=== PATIENT | male | born 1960 | race Caucasian/White ===

== ENCOUNTER 2024-12-08 08:33 | Inpatient (IN) ==
--- NOTE | 2024-12-08 09:10 | Emergency Department Note ---
ED Visit Note I was consulted by the Advanced Practice Provider, Darrell Felix PA-C. I personally made/approved the management plan and take responsibility for the patient management. I performed a substantive portion of the visit. This includes the aspects of: -History/Physical/Personally seeing the patient -MDM .
[2024-12-08 09:30] LABS: Hematocrit (blood only) 44.1 % (42.0-52.0); Hemoglobin 13.8 g/dl (14.0-18.0); Immature Granulocytes # (auto) 0.09 K/uL (0.01-0.20); Immature Granulocytes % (auto) 0.7 %; Mean Corpuscular Hemoglobin 27.8 pg (25.0-34.0); Mean Corpuscular Volume 88.9 fL (80.0-100.0); Platelet Count 273 K/uL (130-400); RDW Standard Deviation 44.1 fL (36.4-46.3); Red Blood Count 4.96 M/uL (4.70-6.10); White Blood Count 12.30 K/ul (4.8-10.8)
[2024-12-08] MEDS ORDERED: CLINDAMYCIN/D5W 900 MG/50 ML BAG IV ONE (09:34)
[2024-12-08] MEDS ORDERED: metroNIDAZOLE 500 MG/100 ML BAG IV STA (09:34)
--- NOTE | 2024-12-08 09:43 | XRay Report ---
XR chest 1V portable CLINICAL HISTORY: Sepsis. COMPARISON STUDY: No previous studies for comparison. FINDINGS: Lung volumes are normal. There is no pneumothorax or pleural effusion. There is no consolid ation or evidence for pulmonary edema. Cardiac size is at the upper limits of normal. There is an abn ormal right mediastinal contour with leftward displacement of the trachea. IMPRESSION: 1. No acute cardiopulmonary findings. 2. Abnormal right mediastinal contour with leftward displacement of the trachea. Although suboptimall y assessed by radiography, this favors a right-sided aortic arch. ACT 112: Negative or not required by law. Electronically signed by: Vito Martinez M.D. 12/08/2024 9:42 AM
[2024-12-08] MEDS: OPTIRAY 320 100ml IV ONE (09:44)
[2024-12-08 09:48] LABS: Alanine Aminotransferase 19.0 U/L (7-52); Alkaline Phosphatase 41.0 U/L (34-104); Anion Gap 10.0 (3-11); Bilirubin,Total 1.1 mg/dl (0.2-1.0); Blood Urea Nitrogen 28.0 mg/dl (6-23); Calcium 9.8 mg/dl (8.6-10.3); Carbon Dioxide 30.0 mmol/L (21-32); Chloride 101.0 mmol/L (98-107); Creatinine Clr Calc Pharmacy 82.2 ml/min; Glucose 135.0 mg/dl (70-99(Fasting)); Magnesium 1.9 mg/dl (1.7-2.4); Potassium 3.9 mmol/L (3.5-5.1); Sodium 141.0 mmol/L (136-145); Total Protein 8.0 gm/dl (6.0-8.3)
[2024-12-08 09:58] LABS: INR 1.0 (0.9-1.1); Partial Thromboplastin Time 29 Seconds (21-31); Prothrombin Time 10.6 Seconds (9.0-12.0)
[2024-12-08] MEDS: CLINDAMYCIN/D5W 600 MG/50 ML PREMIX BAG IV STA (10:09)
[2024-12-08 10:16] LABS: Base Excess VBG 5.0 mEq/L; HCO3 VBG 32 mmol/L; Oxygen Saturation VBG < 60.0 %; PCO2 VBG 55 mmHg (38-50); PO2 VBG < 20 mmHg; pH VBG 7.37 (7.36-7.41)
--- NOTE | 2024-12-08 10:28 | CT Scan Report ---
CT OF THE NECK WITH IV CONTRAST CLINICAL HISTORY: neyda's COMPARISON STUDY: No previous studies for comparison. TECHNIQUE: Following IV administration of 94 mL of Optiray, helical axial images of the neck were ob tained. Sagittal and coronal reconstructions were viewed. Automated exposure control was utilized f or the study. A dose lowering technique was utilized adhering to the principles of ALARA. CT DOSE: 558.34 mGy.cm FINDINGS: Asymmetric prominence of the extra-axial space overlying the right frontal and parietal lo bes is partially imaged on this exam. There is a focus of encephalomalacia within the left occipital lobe. The intracranial contents are otherwise unremarkable. The bilateral parotid glands are unremark able. Major vasculature of the neck is patent. There is no soft tissue gas within the neck. There is moderate inflammation centered on the floor of the mouth. This extends into the submandibular, sublin gual and submental spaces. There is associated skin thickening and moderate lower facial and upper ne ck inflammation. Inflammation adjacent to the bilateral submandibular glands is noted. The glands are enlarged. There is thickening of the epiglottis. This results in supraglottic airway narrowing which appears severe. There are 2 adjacent intramuscular fluid collections within the anterior floor the m outh which measure up to 1.5 cm. These demonstrate minimal peripheral enhancement and are suggestive of developing abscesses. There is a periapical lucency/abscess of the left mandibular second premolar (ADA #20). Multiple teeth are absent. There is no prevertebral edema. Right-sided aortic arch is par tially imaged. Lung apices are unremarkable within visualized portions. IMPRESSION: 1. Findings consistent with an extensive infectious process centered on the floor of the mouth with i nvolvement of the submandibular, sublingual and submental spaces. Two associated small intramuscular fluid collections within the anterior floor of the mouth suggest developing abscesses. The findings a re likely odontogenic in etiology and may be related to a periapical lucency/abscess of the left jl ibular second premolar. Associated thickened, edematous epiglottis which appears to result in severe supraglottic airway narrowing. Urgent ENT consultation is recommended for these findings. 2. Asymmetric prominence of the extra-axial space overlying the right frontal and parietal lobes, par tially imaged on this exam. This is likely chronic and may be related to atrophy or a chronic subdura l hematoma. Nonemergent head CT is recommended. ACT 112: Negative or not required by law. Electronically signed by: Vito Martinez M.D. 12/08/2024 10:26 AM
[2024-12-08 10:48] LABS: Appearance Urine Clear (Clear); Glucose Urine UA Trace (Negative)
--- NOTE | 2024-12-08 10:57 | Electrocardiogram Report ---
Test Reason : Blood Pressure : */* mmHG Vent. Rate : 88 BPM Atrial Rate : 88 BPM P-R Int : 156 ms QRS Dur : 104 ms QT Int : 370 ms P-R-T Axes : 53 -20 29 degrees QTcB Int : 447 ms Normal sinus rhythm Incomplete right bundle branch block Cannot rule out Anterior infarct , age undetermined Abnormal ECG No previous ECGs available Confirmed by Chase Kim ([id number]) on 12/08/2024 10:56:28 AM Referred By: REFERRED SELF Confirmed By: Chase Kim
--- NOTE | 2024-12-08 11:08 | CT Scan Report ---
CT SCAN OF THE BRAIN WITHOUT IV CONTRAST CLINICAL HISTORY: Abnormal finding on neck CT. COMPARISON STUDY: CT of the neck performed earlier today. TECHNIQUE: Unenhanced axial CT scan of the brain was performed from the vertex to the skull base. A dose lowering technique was utilized adhering to the principles of ALARA. CT DOSE: 781.9 mGy.cm FINDINGS: No acute intracranial hemorrhage is present. Ventricular system is unremarkable. Prominence of the extra-axial spaces overlying the cerebral hemispheres, right greater than left, is likely due to atrophy. There are no findings to suggest acute dural sinus thrombosis or acute territorial infar ct. Encephalomalacia within the left occipital lobe is chronic. IMPRESSION: 1. No acute intracranial findings. 2. Prominence of the extra-axial spaces overlying the cerebral hemispheres, right greater than left. This is chronic and likely due to atrophy. ACT 112: Negative or not required by law. Electronically signed by: Vito Martinez M.D. 12/08/2024 11:06 AM
--- NOTE | 2024-12-08 11:20 | Oral/Maxillofacial Consult ---
Date of Consultation December 08, 2024 Assessment & Plan (1) Neyda angina: (2) Submental abscess: (3) Cellulitis of floor of mouth: (4) Failing root canal: History of Present Illness History of Present Illness Oral Maxillofacial Surgery Exam There is NO airway emergency noted Suggest IV therapy with antibiotics Head of bed 30 degrees Heat to chin area Plan NPO for OR tomorrow Must shave his face and neck area Present Complaint: I have pain/swelling/drainage from my infected lower left tooth Symptoms have been ongoing for a while developed significant submental swelling (Neyda angina) No airway issues Oral Exam: Finding--Classic developing Neyda angina submandibular and submental, floor of the mouth Abscessed # 20 lower left premolar Imaging: CT OF THE NECK WITH IV CONTRAST CLINICAL HISTORY: neyda's FINDINGS: Asymmetric prominence of the extra-axial space overlying the right frontal and parietal lobes is partially imaged on this exam. There is a focus of encephalomalacia within the left occipital lobe. The intracranial contents are otherwise unremarkable. The bilateral parotid glands are unremarkable. Major vasculature of the neck is patent. There is no soft tissue gas within the neck. There is moderate inflammation centered on the floor of the mouth. This extends into the submandibular, sublingual and submental spaces. There is associated skin thickening and moderate lower facial and upper neck inflammation. Inflammation adjacent to the bilateral submandibular glands is noted. The glands are enlarged. There is thickening of the epiglottis. This results in supraglottic airway narrowing which appears severe. There are 2 adjacent intramuscular fluid collections within the anterior floor the mouth which measure up to 1.5 cm. These demonstrate minimal peripheral enhancement and are suggestive of developing abscesses. There is a periapical lucency/abscess of the left mandibular second premolar (ADA #20). Multiple teeth are absent. There is no prevertebral edema. Right-sided aortic arch is partially imaged. Lung apices are unremarkable within visualized portions. IMPRESSION: 1. Findings consistent with an extensive infectious process centered on the floor of the mouth with involvement of the submandibular, sublingual and submental spaces. Two associated small intramuscular fluid collections within th e anterior floor of the mouth suggest developing abscesses. The findings are likely odontogenic in etiology and may be related to a periapical lucency/abscess of the left mandibular second premolar. Associated thickened, edematous epiglottis which appears to result in severe supraglottic airway narrowing. Urgent ENT consultation is recommended for these findings. 2. Asymmetric prominence of the extra-axial space overlying the right frontal and parietal lobes, partially imaged on this exam. This is likely chronic and may be related to atrophy or a chronic subdural hematoma. Nonemergent head CT is recommended. Soft tissue: Floor of the mouth, tongue, hard/soft palate, posterior pharyngeal area all with in normal limits, no pathology or abnormal findings noted. No lesions noted that require follow up or Bx. Oral Care: Overall oral care is far Occlusion: Class I missing teeth Head/Neck exam: Neck is supple, FROM, Able to extend and flex neck w/o difficulty, Developing Neyda angina with no airway issues able to swallow but with pain Treatment Plan: Admission to medical, IV antibiotics, fluid management, heat to neck, NPO with possible I&D tomorrow afternoon Set up with general anesthesia in hospital due to complexity of the procedure I reviewed the treatment plan and consent with the patient and Understanding was expressed. Time was given for questions regarding the surgery, risks and post op care. Discussed alternative to treatment--procedure as planned, Do not do surgery Extraoral I&D with ext of # 20 Risks discussed: Bleeding,Pain,swelling,infection, dry socket, delayed healing, nerve injury to face,lips,tongue,chin area which could be permanent (rare). TMJ, jaw stiffness, change in bite (rare), ear pain (referred). Continued infection, scar from I&D sites Surgery to be set up hopefully tomorrow afternoon if organization of the infection process suggest fluctuation in the submandibular, submental and floor of the mouth Allergies Allergy/AdvReac Type Severity Reaction Status Date / Time Penicillins Allergy Unknown Unknown - Unverified 12/08/24 11:29 On file w/ [facility] Home Medications Medication Instructions Recorded Confirmed Type atorvastatin 40 mg tablet 40 mg PO DAILY 12/08/24 12/08/24 History chlorthalidone 25 mg tablet 25 mg PO DAILY 12/08/24 12/08/24 History fenofibrate micronized 200 mg 200 mg PO DAILY 12/08/24 12/08/24 History capsule gabapentin 300 mg capsule 300 mg PO TID 12/08/24 12/08/24 History lisinopril 40 mg tablet 40 mg PO DAILY 12/08/24 12/08/24 History metformin 500 mg tablet,extended 500 mg PO DAILY 12/08/24 12/08/24 History release 24 hr pioglitazone 30 mg tablet 30 mg PO DAILY 12/08/24 12/08/24 History verapamil 240 mg tablet,extended 240 mg PO DAILY 12/08/24 12/08/24 History release Patient History Medical History (Updated 12/08/24 @ 11:27 by Ollie Lipscomb DMD) Hypertension Social History Smoking Status: Never smoker Preferred Language: Albanian Feels Safe at Home: Yes Results & Data Vital Signs (Past 12 Hours) Vital Signs Temp Pulse Pulse Resp BP BP Pulse Ox 12/08/24 11:00 95 H 26 H 144/97 H 12/08/24 10:51 87 17 97 12/08/24 10:30 142/95 H 12/08/24 10:30 89 17 142/95 H 100 12/08/24 10:09 89 19 134/95 100 12/08/24 09:54 95 H 24 159/98 H 99 12/08/24 09:38 98 12/08/24 09:30 88 20 143/91 H 100 12/08/24 09:25 90 12/08/24 09:23 89 18 145/90 H 98 12/08/24 09:00 87 16 98 12/08/24 08:40 36.7 C 95 H 20 149/90 H 99 O2 Del Method 12/08/24 11:00 12/08/24 10:51 12/08/24 10:30 12/08/24 10:30 12/08/24 10:09 Room Air 12/08/24 09:54 12/08/24 09:38 Room Air 12/08/24 09:30 12/08/24 09:25 12/08/24 09:23 Room Air 12/08/24 09:00 Room Air 12/08/24 08:40 Room Air PG Care Time/CCT Total # of Minutes Spent Total Time Spent with Patient: Total time spent is greater than 50% in coordination of care (as documented) at patient's floor/unit and/or counseling patient: Coding Level of Care Code 10996 OFFICE CONSULT LVL 40M Diagnoses Neyda angina K12.2 Submental abscess L02.01 Cellulitis of floor of mouth K12.2 Failing root canal M27.59
--- NOTE | 2024-12-08 12:49 | Emergency Department Note ---
History of Present Illness General Chief complaint: Facial Injury/Pain Stated complaint: SWELLING IN [place] Time Seen by Provider: 12/08/24 08:45 History of Present Illness Maximum Pain Intensity: 5 this 64-year-old male presents today with his , for evaluation of swelling that has developed under his chin. The patient states symptoms developed on Monday. He had been traveling, and noticed a fullness underneath his chin. He states it has become worse over the last 2 days. His states she noticed some swelling changes on Monday, but did not think much of it until he returned home on Monday. He denies any fevers or chills. No nausea or vomiting. He has no difficulty breathing, but states that is difficult to swallow his saliva. No prior history of similar issue. He states there was a sore tooth on the left mandible earlier this week, and he previously had a root canal in that tooth. He is wondering if it became infected and caused his facial swelling. Denies any difficulty breathing or shortness of breath. He feels as though his tongue is being lifted from the floor of his mouth. He thinks his voice has changed. His agrees. He believes he is allergic to penicillin. He is unsure of any reaction and states he was told this since he was a child. There was no trauma to the jaw or throat. No additional complaints. Home Medications Medication Instructions Recorded Confirmed Type atorvastatin 40 mg tablet 40 mg PO DAILY 12/08/24 12/08/24 History chlorthalidone 25 mg tablet 25 mg PO DAILY 12/08/24 12/08/24 History fenofibrate micronized 200 mg 200 mg PO DAILY 12/08/24 12/08/24 History capsule gabapentin 300 mg capsule 300 mg PO TID 12/08/24 12/08/24 History lisinopril 40 mg tablet 40 mg PO DAILY 12/08/24 12/08/24 History metformin 500 mg tablet,extended 500 mg PO DAILY 12/08/24 12/08/24 History release 24 hr pioglitazone 30 mg tablet 30 mg PO DAILY 12/08/24 12/08/24 History verapamil 240 mg tablet,extended 240 mg PO DAILY 12/08/24 12/08/24 History release Allergies Allergy/AdvReac Type Severity Reaction Status Date / Time Penicillins Allergy Unknown Unknown - Unverified 12/08/24 11:29 On file w/ [facility] Past Med/Surg History Problem List (Updated 12/08/24 @ 20:05 by Semaj Felix PA-C) Beni angina (Acute) Cellulitis of floor of mouth Submental abscess (Acute) Failing root canal Medical History (Updated 12/08/24 @ 20:05 by Semaj Felix PA-C) H/O non-insulin dependent diabetes mellitus Hypertension Family History (Updated 12/08/24 @ 12:45 by Semaj Felix PA-C) Other No pertinent family history Social History Smoking Status: Never smoker Hx Alcohol Use: Yes Alcohol type: beer Hx Substance Use: No Preferred Language: Luxembourgish Communication Ability: Effective Digital Camera Technician Required: No Beliefs That Will Affect Care: None Current Living Situation: Alone Other Information That Helps Us Care for You: No Feels Safe at Home: Yes Safety Concerns: Feels Safe At This Time Assistive Devices: Glasses Review of Systems A total of 10 systems reviewed and were otherwise negative Physical Exam Vital Signs Vital Signs - 24 hr 12/08/24 08:40 12/08/24 09:00 12/08/24 09:23 Temperature 36.7 C Temperature Source Temporal Artery Scan Pulse Rate 95 H Pulse Rate [Apical] 87 89 Pulse Rate from SpO2 Sensor Respiratory Rate 20 16 18 Respiratory Effort / Characteristics Non-Labored Spontaneous Non-Labored Spontaneous Non-Labored Spontaneous Respiratory Depth Normal Normal Normal Blood Pressure 149/90 H Blood Pressure [Right Arm] 145/90 H Blood Pressure Mean 109 Blood Pressure Mean [Right Arm] 108 Blood Pressure Position [Right Arm] Semi-fowlers Pulse Oximetry 99 98 98 Oxygen Delivery Method Room Air Room Air Room Air Sepsis Recent Fever Within 48 Hours No Sepsis New/Unexplained Change in Mental Status No Sepsis Action Taken by Nursing No Action Required 12/08/24 09:25 12/08/24 09:30 12/08/24 09:38 Temperature Temperature Source Pulse Rate 90 88 Pulse Rate [Apical] Pulse Rate from SpO2 Sensor 89 Respiratory Rate 20 Respiratory Effort / Characteristics Respiratory Depth Blood Pressure 143/91 H Blood Pressure [Right Arm] Blood Pressure Mean 108 Blood Pressure Mean [Right Arm] Blood Pressure Position [Right Arm] Pulse Oximetry 100 98 Oxygen Delivery Method Room Air Sepsis Recent Fever Within 48 Hours Sepsis New/Unexplained Change in Mental Status Sepsis Action Taken by Nursing 12/08/24 09:54 12/08/24 10:09 12/08/24 10:30 Temperature Temperature Source Pulse Rate 95 H 89 Pulse Rate [Apical] 89 Pulse Rate from SpO2 Sensor 94 H Respiratory Rate 24 19 17 Respiratory Effort / Characteristics Non-Labored Spontaneous Respiratory Depth Normal Blood Pressure 159/98 H 142/95 H Blood Pressure [Right Arm] 134/95 Blood Pressure Mean 118 109 Blood Pressure Mean [Right Arm] 108 Blood Pressure Position [Right Arm] Semi-fowlers Pulse Oximetry 99 100 100 Oxygen Delivery Method Room Air Sepsis Recent Fever Within 48 Hours Sepsis New/Unexplained Change in Mental Status Sepsis Action Taken by Nursing 12/08/24 10:30 12/08/24 10:51 12/08/24 11:00 Temperature Temperature Source Pulse Rate 87 95 H Pulse Rate [Apical] Pulse Rate from SpO2 Sensor 86 Respiratory Rate 17 26 H Respiratory Effort / Characteristics Respiratory Depth Blood Pressure 142/95 H 144/97 H Blood Pressure [Right Arm] Blood Pressure Mean 109 128 Blood Pressure Mean [Right Arm] Blood Pressure Position [Right Arm] Pulse Oximetry 97 Oxygen Delivery Method Sepsis Recent Fever Within 48 Hours Sepsis New/Unexplained Change in Mental Status Sepsis Action Taken by Nursing 12/08/24 11:15 12/08/24 11:30 12/08/24 11:51 Temperature Temperature Source Pulse Rate 95 H 90 91 H Pulse Rate [Apical] Pulse Rate from SpO2 Sensor 90 91 H Respiratory Rate 18 23 21 Respiratory Effort / Characteristics Respiratory Depth Blood Pressure 156/100 H 150/102 H Blood Pressure [Right Arm] Blood Pressure Mean 116 118 Blood Pressure Mean [Right Arm] Blood Pressure Position [Right Arm] Pulse Oximetry 98 100 98 Oxygen Delivery Method Sepsis Recent Fever Within 48 Hours Sepsis New/Unexplained Change in Mental Status Sepsis Action Taken by Nursing 12/08/24 12:09 12/08/24 12:15 12/08/24 12:42 Temperature Temperature Source Pulse Rate 92 H 97 H 101 H Pulse Rate [Apical] Pulse Rate from SpO2 Sensor 93 H 101 H Respiratory Rate 20 21 21 Respiratory Effort / Characteristics Respiratory Depth Blood Pressure 177/103 H 167/114 H Blood Pressure [Right Arm] Blood Pressure Mean 127 124 Blood Pressure Mean [Right Arm] Blood Pressure Position [Right Arm] Pulse Oximetry 100 98 99 Oxygen Delivery Method Sepsis Recent Fever Within 48 Hours Sepsis New/Unexplained Change in Mental Status Sepsis Action Taken by Nursing 12/08/24 12:51 12/08/24 13:00 Temperature Temperature Source Pulse Rate 101 H 103 H Pulse Rate [Apical] Pulse Rate from SpO2 Sensor 101 H Respiratory Rate 18 16 Respiratory Effort / Characteristics Respiratory Depth Blood Pressure 172/115 H Blood Pressure [Right Arm] Blood Pressure Mean 145 Blood Pressure Mean [Right Arm] Blood Pressure Position [Right Arm] Pulse Oximetry 100 98 Oxygen Delivery Method Sepsis Recent Fever Within 48 Hours Sepsis New/Unexplained Change in Mental Status Sepsis Action Taken by Nursing General: Well-developed, well-nourished, middle-aged white male, in no acute distress. Obvious discomfort. Sitting on the bed. Alert and oriented. Skin: Warm and dry with good turgor. No rashes. No ecchymosis or erythema. He has significant edema present in the submandibular area. No open wounds. the swelling is soft but not fluctuant. HEENT: Normocephalic atraumatic. Eyes PERRLA, EOMI. No conjunctiva or scleral injection. Ears TMs intact bilaterally with good light reflexes. No erythema or bulging. No hemotympanum. Canals are patent. Nares patent bilaterally without turbinate enlargement. No significant drainage. No epistaxis. Oropharynx without erythema or exudate. Uvula midline, oral mucosa moist. No lesions present. he has significant swelling in the floor of the mouth. Tongue is elevated. Poor overall dentition. The left second premolar is tender. There is fullness in the surrounding gum tissue. No specific abscess or pocket. No evidence of fracture of the tooth. Lymphatics are palpated with anterior chain enlargement and tenderness. No posterior chain enlargement or tenderness. Heart: Heart RRR. No MGR. Peripheral pulses are 2+. Lungs: Lungs are clear to auscultation. No crackles rhonchi or wheezing. Good air movement. The patient is able to take a deep breath. Abdomen: Abdomen was inspected, auscultated, and palpated. Obese. Bowel sounds present x 4. Soft, nontender to palpation. No hepato-splenomegaly. No masses noted. No rebound. Musculoskeletal: The patient has intact motor function to his neck. There is some minor limitation in forward flexion and neck extension secondary to discomfort in the submandibular area. Course Administered Medications Lactated Ringer's (Lr) 1,000 mls @ 70 mls/hr IV .[id number] [facility] Stop: 12/09/24 17:34 Last Admin: 12/08/24 13:47 Dose: 70 mls/hr Documented By: JOSE Clindamycin Phosphate (Cleocin/D5w) 600 mg in 50 mls @ 100 mls/hr IV Q8H [facility] Stop: 12/18/24 17:59 Last Infusion: 12/08/24 17:39 Dose: Infused Documented By: Admin: 12/08/24 17:09 Dose: 100 mls/hr Documented By: DRE Insulin Aspart (Insulin Aspart Per Unit Charge) 0 units SC Q6 LIZZY Stop: 01/07/25 17:59 Last Admin: 12/08/24 17:51 Dose: Not Given Documented By: DRE Discontinued Medications Clindamycin Phosphate (Cleocin/D5w) 600 mg in 50 mls @ 100 mls/hr IV NOW [facility] Stop: 12/08/24 10:17 Last Infusion: 12/08/24 11:01 Dose: Infused Documented By: Admin: 12/08/24 10:09 Dose: 100 mls/hr Documented By: MMF Ioversol (Optiray 320 100ml) 94 ml IV ONCE ONE Stop: 12/08/24 09:44 Last Admin: 12/08/24 09:44 Dose: 94 ml Documented By: KRISTINA Medical Decision Making Differential Diagnosis Dental abscess, Beni's angina, parotitis, goiter, salivary stone, strep pharyngitis Medical Records Attestation: I reviewed the patient's medical records. Home Medications Current Medication List: was personally reviewed by me Laboratory Data CBC obtained today shows a mild elevation in white count at 12.3. H&H of 13.8 and 44.1. Normal platelets. Chemistry panel obtained today shows normal electrolytes. BUN of 28 with creatinine 1.13. Glucose 135. LFTs show a mild elevation in total bilirubin and direct bilirubin. Normal lactate at 1.4. Normal INR at 1.0. Venous blood gas shows normal pH. Mild elevation in opening pressure CO2. Normal O2. Troponin is normal. Procalcitonin is also normal. UA obtained today shows clear yellow urine and is unremarkable. 12/08/24 09:13 12/08/24 09:13 Lab Results 12/08/24 12/08/24 12/08/24 Range/Units 09:13 09:21 09:55 WBC 12.30 H (4.8-10.8) K/ul RBC 4.96 (4.70-6.10) M/uL Hgb 13.8 L (14.0-18.0) g/dl POC Hgb 15.0 (14.0-18.0) g/dl Hct 44.1 (42.0-52.0) % POC Hct 44 (42-52) % MCV 88.9 (80.0-100.0) fL MCH 27.8 (25.0-34.0) pg MCHC 31.3 L (32.0-36.0) g/dL RDW Std Deviation 44.1 (36.4-46.3) fL RDW Coeff of Ratna 13.6 (11.5-14.5) % Plt Count 273 (130-400) K/uL MPV 10.6 (9.4-12.4) fL Immature Gran % (Auto) 0.7 % Neut % (Auto) 80.7 % Lymph % (Auto) 8.9 % [place] % (Auto) 8.6 % Eos % (Auto) 0.7 % Baso % (Auto) 0.4 % Neut # (Auto) 9.92 H (1.40-6.50) K/uL Lymph # (Auto) 1.10 L (1.20-3.40) K/uL [place] # (Auto) 1.06 H (0.11-0.59) K/uL Eos # (Auto) 0.08 (0.00-0.50) K/uL Baso # (Auto) 0.05 (0.00-0.20) K/uL Immature Gran # (Auto) 0.09 (0.01-0.20) K/uL PT 10.6 (9.0-12.0) Seconds INR 1.0 (0.9-1.1) APTT 29 (21-31) Seconds PTT Ratio 1.1 VBG pH 7.37 (7.36-7.41) VBG pCO2 55 H (38-50) mmHg VBG pO2 < 20 mmHg VBG HCO3 32 mmol/L VBG O2 Saturation < 60.0 % VBG Base Excess 5.0 mEq/L POC Sodium 140 (135-144) mmol/L Sodium 141 (136-145) mmol/L POC Potassium 3.8 (3.3-5.0) mmol/L Potassium 3.9 (3.5-5.1) mmol/L POC Chloride 103 (101-112) mmol/L Chloride 101 (98-107) mmol/L Carbon Dioxide 30 (21-32) mmol/L POC Total CO2 27 (24-31) mmol/L Anion Gap 10 (3-11) POC Anion Gap 16.0 (16-25) mmol/L POC BUN 27 H (7-18) mg/dl BUN 28 H (6-23) mg/dl Creatinine 1.31 (0.6-1.4) mg/dl POC Creatinine 1.4 H (0.6-1.3) mg/dl Est Cr Clr Drug Dosing 82.2 ml/min eGFR 61.54 BUN/Creatinine Ratio 21.4 H (10-20) Glucose 135 H (70-99(Fasting)) mg/dl POC Glucose (other) 139 H (70-99) mg/dl Lactate 1.4 (0.4-2.0) mmol/L Calcium 9.8 (8.6-10.3) mg/dl POC Ioniz Calcium Yolanda 1.16 (1.12-1.32) mmol/l Magnesium 1.9 (1.7-2.4) mg/dl Total Bilirubin 1.1 H (0.2-1.0) mg/dl Direct Bilirubin 0.3 H (0-0.2) mg/dl AST 18 (13-39) U/L ALT 19 (7-52) U/L Alkaline Phosphatase 41 (34-104) U/L Troponin I High Sens 4.2 (0-20) pg/ml Total Protein 8.0 (6.0-8.3) gm/dl Albumin 4.2 (3.4-5.0) gm/dl Procalcitonin 0.12 (0-0.5) ng/ml Urine Color Urine Appearance (Clear) Urine pH (4.5-7.5) Ur Specific Meeker (1.000-1.030) Urine Protein (Negative) Urine Glucose (UA) (Negative) Urine Ketones (Negative) Urine Blood (Negative) Urine Nitrite (Negative) Urine Bilirubin (Negative) Urine Urobilinogen (Negative) Ur Leukocyte Esterase (Negative) Urine Comment 12/08/24 Range/Units 10:13 WBC (4.8-10.8) K/ul RBC (4.70-6.10) M/uL Hgb (14.0-18.0) g/dl POC Hgb (14.0-18.0) g/dl Hct (42.0-52.0) % POC Hct (42-52) % MCV (80.0-100.0) fL MCH (25.0-34.0) pg MCHC (32.0-36.0) g/dL RDW Std Deviation (36.4-46.3) fL RDW Coeff of Ratna (11.5-14.5) % Plt Count (130-400) K/uL MPV (9.4-12.4) fL Immature Gran % (Auto) % Neut % (Auto) % Lymph % (Auto) % [place] % (Auto) % Eos % (Auto) % Baso % (Auto) % Neut # (Auto) (1.40-6.50) K/uL Lymph # (Auto) (1.20-3.40) K/uL [place] # (Auto) (0.11-0.59) K/uL Eos # (Auto) (0.00-0.50) K/uL Baso # (Auto) (0.00-0.20) K/uL Immature Gran # (Auto) (0.01-0.20) K/uL PT (9.0-12.0) Seconds INR (0.9-1.1) APTT (21-31) Seconds PTT Ratio VBG pH (7.36-7.41) VBG pCO2 (38-50) mmHg VBG pO2 mmHg VBG HCO3 mmol/L VBG O2 Saturation % VBG Base Excess mEq/L POC Sodium (135-144) mmol/L Sodium (136-145) mmol/L POC Potassium (3.3-5.0) mmol/L Potassium (3.5-5.1) mmol/L POC Chloride (101-112) mmol/L Chloride (98-107) mmol/L Carbon Dioxide (21-32) mmol/L POC Total CO2 (24-31) mmol/L Anion Gap (3-11) POC Anion Gap (16-25) mmol/L POC BUN (7-18) mg/dl BUN (6-23) mg/dl Creatinine (0.6-1.4) mg/dl POC Creatinine (0.6-1.3) mg/dl Est Cr Clr Drug Dosing ml/min eGFR BUN/Creatinine Ratio (10-20) Glucose (70-99(Fasting)) mg/dl POC Glucose (other) (70-99) mg/dl Lactate (0.4-2.0) mmol/L Calcium (8.6-10.3) mg/dl POC Ioniz Calcium Yolanda (1.12-1.32) mmol/l Magnesium (1.7-2.4) mg/dl Total Bilirubin (0.2-1.0) mg/dl Direct Bilirubin (0-0.2) mg/dl AST (13-39) U/L ALT (7-52) U/L Alkaline Phosphatase (34-104) U/L Troponin I High Sens (0-20) pg/ml Total Protein (6.0-8.3) gm/dl Albumin (3.4-5.0) gm/dl Procalcitonin (0-0.5) ng/ml Urine Color Yellow Urine Appearance Clear (Clear) Urine pH 7.5 (4.5-7.5) Ur Specific [place]eker 1.039 H (1.000-1.030) Urine Protein Negative (Negative) Urine Glucose (UA) Trace H (Negative) Urine Ketones Negative (Negative) Urine Blood Negative (Negative) Urine Nitrite Negative (Negative) Urine Bilirubin Negative (Negative) Urine Urobilinogen Negative (Negative) Ur Leukocyte Esterase Negative (Negative) Urine Comment Imaging Data My Impression: Chest x-ray obtained today shows no acute cardiopulmonary findings. This was interpreted by me and read by radiology. No pneumothorax or pleural effusion. There appears to be a slight leftward displacement of the trachea. CT scan imaging of the soft tissue of the neck with IV contrast was obtained. This was also interpreted by me and read by radiology. There is an extensive infectious process centered on the floor of the mouth with involvement of the submandibular, sublingual, and submental spaces. He has 2 small collections of fluid that suggest developing abscesses in the intramuscular space. There is an edematous epiglottis which reveals severe supraglottic airway narrowing. ENT/OMF consultation was recommended urgently. Incidentally, asymmetric prominence of the space overlying the right frontal and right parietal lobes was noted. It may be related to atrophy or chronic subdural hematoma. CT scan of the head was recommended. This was obtained and was also interpreted by me and read by radiology. No acute findings were noted. Radiologist's Impression: Chest X-Ray 12/08/24 08:58 XR chest 1V portable CLINICAL HISTORY: Sepsis. COMPARISON STUDY: No previous studies for comparison. FINDINGS: Lung volumes are normal. There is no pneumothorax or pleural effusion. There is no consolidation or evidence for pulmonary edema. Cardiac size is at the upper limits of normal. There is an abnormal right mediastinal contour with leftward displacement of the trachea. IMPRESSION: 1. No acute cardiopulmonary findings. 2. Abnormal right mediastinal contour with leftward displacement of the trachea. Although suboptimally assessed by radiography, this favors a right-sided aortic arch. ACT 112: Negative or not required by law. Electronically signed by: Vito Martinez M.D. 12/08/2024 9:42 AM Soft Tissue Neck CT 12/08/24 08:59 CT OF THE NECK WITH IV CONTRAST CLINICAL HISTORY: beni's COMPARISON STUDY: No previous studies for comparison. TECHNIQUE: Following IV administration of 94 mL of Optiray, helical axial images of the neck were obtained. Sagittal and coronal reconstructions were viewed. Automated exposure control was utilized for the study. A dose lowering technique was utilized adhering to the principles of ALARA. CT DOSE: 558.34 mGy.cm FINDINGS: Asymmetric prominence of the extra-axial space overlying the right frontal and parietal lobes is partially imaged on this exam. There is a focus of encephalomalacia within the left occipital lobe. The intracranial contents are otherwise unremarkable. The bilateral parotid glands are unremarkable. Major vasculature of the neck is patent. There is no soft tissue gas within the neck. There is moderate inflammation centered on the floor of the mouth. This extends into the submandibular, sublingual and submental spaces. There is associated skin thickening and moderate lower facial and upper neck inflammation. Inflammation adjacent to the bilateral submandibular glands is noted. The glands are enlarged. There is thickening of the epiglottis. This results in supraglottic airway narrowing which appears severe. There are 2 adjacent intramuscular fluid collections within the anterior floor the mouth which measure up to 1.5 cm. These demonstrate minimal peripheral enhancement and are suggestive of developing abscesses. There is a periapical lucency/abscess of the left mandibular second premolar (ADA #20). Multiple teeth are absent. There is no prevertebral edema. Right-sided aortic arch is partially imaged. Lung apices are unremarkable within visualized portions. IMPRESSION: 1. Findings consistent with an extensive infectious process centered on the floor of the mouth with involvement of the submandibular, sublingual and submental spaces. Two associated small intramuscular fluid collections within the anterior floor of the mouth suggest developing abscesses. The findings are likely odontogenic in etiology and may be related to a periapical lucency/abscess of the left mandibular second premolar. Associated thickened, edematous epiglottis which appears to result in severe supraglottic airway narrowing. Urgent ENT consultation is recommended for these findings. 2. Asymmetric prominence of the extra-axial space overlying the right frontal and parietal lobes, partially imaged on this exam. This is likely chronic and may be related to atrophy or a chronic subdural hematoma. Nonemergent head CT is recommended. ACT 112: Negative or not required by law. Electronically signed by: Vito Martinez M.D. 12/08/2024 10:[address] 12/08/24 10:30 CT SCAN OF THE BRAIN WITHOUT IV CONTRAST CLINICAL HISTORY: Abnormal finding on neck CT. COMPARISON STUDY: CT of the neck performed earlier today. TECHNIQUE: Unenhanced axial CT scan of the brain was performed from the vertex to the skull base. A dose lowering technique was utilized adhering to the principles of ALARA. CT DOSE: 781.9 mGy.cm FINDINGS: No acute intracranial hemorrhage is present. Ventricular system is unremarkable. Prominence of the extra-axial spaces overlying the cerebral hemispheres, right greater than left, is likely due to atrophy. There are no findings to suggest acute dural sinus thrombosis or acute territorial infarct. Encephalomalacia within the left occipital lobe is chronic. IMPRESSION: 1. No acute intracranial findings. 2. Prominence of the extra-axial spaces overlying the cerebral hemispheres, right greater than left. This is chronic and likely due to atrophy. ACT 112: Negative or not required by law. Electronically signed by: Vito Martinez M.D. 12/08/2024 11:06 AM ECG Data Additional Comments: EKG obtained today was interpreted by me and reviewed with Dr. Gerardo. It shows a normal sinus rhythm with a rate of 88. Incomplete right bundle branch block. No acute ST or T wave changes were present. Blood Pressure Blood Pressure Findings: Elevated blood pressure Blood Pressure Disposition: elevated BP felt to be situational MDM Narrative The patient was evaluated in room A9. Conservative care measures were discussed. IV was established. Labs were obtained. This showed mild elevation in white count. He is a known diabetic but his blood sugars are reasonable. The patient was placed on a library monitor and remained in normal sinus rhythm with a rate in the 80s. EKG was obtained today and shows a normal sinus rhythm. No acute findings were noted. Chest x-ray, CT scan imaging of the soft tissues of the neck, and CT scan imaging of the head were all obtained. Chest film showed normal lung scott but a questionable shift of the trachea. The soft tissue of the neck was consistent with submandibular abscess (Beni's angina) and recommended urgent ENT/OMF consultation. It also showed a questionable abnormality in the soft tissue of the brain. CT imaging of the brain was performed without contrast, and showed chronic changes. No acute abnormality. The patient was ordered clindamycin 900 mg IV along with Flagyl 500 mg IV for antibiotic prophylaxis. After further discussion with the pharmacist, Flagyl was canceled, and clindamycin was changed to 600 mg IV. The patient did not require any medication for pain or nausea. Breathing and oxygen saturation remained adequate while in the department. He was reevaluated numerous times during his observation prior to admission. I spoke with Dr. Lipscomb consultation. He came to the ED to evaluate the patient. Please see his dictation for management recommendations. The patient will be admitted to the hospitalist service for medical management, with anticipation of taking him to the OR tomorrow for incision and drainage. Impression & Plan Beni angina, Submental abscess the patient is admitted to the hospitalist service. Please see that dictation for final management. The patient was seen in conjunction with Dr. Gerardo, who also evaluated the patient and concurred with today's diagnosis and treatment plan. Discharge Plan Visit Data Chief Complaint: Facial Injury/Pain Stated Complaint: SWELLING IN [place] ED Provider: Chase Gerardo ED Midlevel Provider: Semaj Felix Discharge Problem: Beni angina, Submental abscess Patient Disposition: Admitted As Inpatient Condition: Fair Discharge Instructions Interventions: ED Discharge Assessment Last Done: 12/08/24 13:55 ED DC CONDITION Conditon at Discharge Condition at Discharge: Fair ( admitted)
[2024-12-08] MEDS ORDERED: LABETALOL HCL IV 5 MG/ML 20ML IV PRN (13:03)
[2024-12-08] MEDS ORDERED: ACETAMINOPHEN 1,000 MG/100 ML VIAL IV PRN (13:06)
[2024-12-08] MEDS ORDERED: MoRPHine SULFATE 2 MG/ML CARP IV PRN (13:06)
[2024-12-08] MEDS ORDERED: PHARMACY GLYCEMIC MGMT CONSULT PRN (13:19)
[2024-12-08] MEDS ORDERED: GLUCOSE 40% GEL 15 GM TUBE PO PRN (13:19)
[2024-12-08] MEDS ORDERED: CARBOHYDRATES FOR HYPOGLYCEMIA PO PRN (13:19)
[2024-12-08] MEDS ORDERED: GLUCOSE 10 TAB/TUBE PO PRN (13:19)
[2024-12-08] MEDS ORDERED: DEXTROSE 50% 50 ML SYRINGE IV PRN (13:19)
[2024-12-08] MEDS ORDERED: GLUCAGON FOR INJ 1 MG VIAL SQ PRN (13:19)
--- NOTE | 2024-12-08 13:20 | History & Physical Report ---
Date of Service December 08, 2024 Assessment & Plan (1) Beni angina: Plan Beni angina Submental abscess Cellulitis of floor of mouth Following root canal Patient presents with intermittent left lower teeth pain, poor oral hygiene, acute swelling of soft tissue below jaw since yesterday. Patient denies fever, denies difficulty breathing, reports difficulty swallowing. Get Bio[employer], MRSA nares, continue with IV clindamycin And IV fluids. OMFS evaluated, deemed no airway emergence. N.p.o. OR tomorrow. Keep head of the bed 30 degrees. Monitor vitals closely. iv meds for pain Mx. Follow admitting blood culture and operative culture from tomorrow. Other chronic medical conditions: HTN, HLD, chronic back pain, diabetes --- will hold oral medications today. IV labetalol for blood pressure management. Sliding-scale insulin for diabetes management. Resume home meds postoperatively as able. DVT prophylaxis: SCDs, possible OR tomorrow. Full code History of Present Illness Chief Complaint: Swelling below jaw Primary Care Provider: NO PCP 64-year-old male with PMH of T2DM, HLD, Raynaud's syndrome, HTN, obese class III, CKD stage III A, chronic bilateral low back pain with bilateral sciatica presents to the ED with acute swelling of neck soft tissues below jaw since yesterday. Patient reports intermittent left lower teeth pain for several weeks now, he noted acute swelling of his upper neck tissue below jaw yesterday which continued to worsen today and has difficulty swallowing. Patient reports some sore throat and cough since 2 days. Patient denies fever/chest pain/palpitation/nausea/vomiting/diarrhea/pain or burning with passing urine. patient reports breathing okay and no difficulty. Patient denies smoking/drinks maybe 6 beers a week/denies recreational drug use. Medications reviewed with the patient at bedside. Plan of care discussed with the patient at bedside, he voiced understanding. Full Code. Allergies Allergy/AdvReac Type Severity Reaction Status Date / Time Penicillins Allergy Unknown Unknown - Unverified 12/08/24 11:29 On file w/ [facility] Pharmacy Home Medications Medication Instructions Recorded Confirmed Type atorvastatin 40 mg tablet 40 mg PO DAILY 12/08/24 12/08/24 History chlorthalidone 25 mg tablet 25 mg PO DAILY 12/08/24 12/08/24 History fenofibrate micronized 200 mg 200 mg PO DAILY 12/08/24 12/08/24 History capsule gabapentin 300 mg capsule 300 mg PO TID 12/08/24 12/08/24 History lisinopril 40 mg tablet 40 mg PO DAILY 12/08/24 12/08/24 History metformin 500 mg tablet,extended 500 mg PO DAILY 12/08/24 12/08/24 History release 24 hr pioglitazone 30 mg tablet 30 mg PO DAILY 12/08/24 12/08/24 History verapamil 240 mg tablet,extended 240 mg PO DAILY 12/08/24 12/08/24 History release Past Med/Surg History Problem List (Updated 12/08/24 @ 12:44 by Semaj Felix PA-C) Beni angina Cellulitis of floor of mouth Submental abscess Failing root canal Medical History (Updated 12/08/24 @ 12:44 by Semaj Felix PA-C) H/O non-insulin dependent diabetes mellitus Hypertension Family History (Updated 12/08/24 @ 12:45 by Semaj Felix PA-C) Other No pertinent family history Social History Smoking Status: Never smoker Preferred Language: French Feels Safe at Home: Yes Review of Systems Review of Systems: Negative otherwise mentioned in HPI. Physical Exam Physical Exam: GENERAL: Alert and oriented x3. NAD, on RA. Obese class III. HEENT: No pallor, no icterus. Pupils equal, round and reactive to light. Oral mucosa moist. NECK: No JVD, submental/submandibular/sublingual swelling, hard induration, erythema, warmth, tender noted. Left lower premolar (#20) caries/decay noted. HEART: S1 and S2 heard. Regular rate and rhythm. HR in 100s to 90s. No murmur, no gallop. RESPIRATORY SYSTEM: Normal AP diameter. No accessory muscle use. No wheezing, no crackles. ABDOMEN: Soft, bowel sounds present, nontender, no distention. CENTRAL NERVOUS SYSTEM: No facial droop. Speech is clear. Obeys simple commands. Moves extremities. EXTREMITIES: No edema, no erythema seen. Results & Data Results & Data Vital Signs (Past 12 Hours) Vital Signs Temp Pulse Pulse Resp BP BP Pulse Ox 12/08/24 13:00 103 H 16 172/115 H 98 12/08/24 12:51 101 H 18 100 12/08/24 12:42 101 H 21 99 12/08/24 12:15 97 H 21 167/114 H 98 12/08/24 12:09 92 H 20 177/103 H 100 12/08/24 11:51 91 H 21 98 12/08/24 11:30 90 23 150/102 H 100 12/08/24 11:15 95 H 18 156/100 H 98 12/08/24 11:00 95 H 26 H 144/97 H 12/08/24 10:51 87 17 97 12/08/24 10:30 142/95 H 12/08/24 10:30 89 17 142/95 H 100 12/08/24 10:09 89 19 134/95 100 12/08/24 09:54 95 H 24 159/98 H 99 12/08/24 09:38 98 12/08/24 09:30 88 20 143/91 H 100 12/08/24 09:25 90 12/08/24 09:23 89 18 145/90 H 98 12/08/24 09:00 87 16 98 12/08/24 08:40 36.7 C 95 H 20 149/90 H 99 O2 Del Method 12/08/24 13:00 12/08/24 12:51 12/08/24 12:42 12/08/24 12:15 12/08/24 12:09 12/08/24 11:51 12/08/24 11:30 12/08/24 11:15 12/08/24 11:00 12/08/24 10:51 12/08/24 10:30 12/08/24 10:30 12/08/24 10:09 Room Air 12/08/24 09:54 12/08/24 09:38 Room Air 12/08/24 09:30 12/08/24 09:25 12/08/24 09:23 Room Air 12/08/24 09:00 Room Air 12/08/24 08:40 Room Air
[2024-12-08] MEDS: LACTATED RINGER'S 1,000 ML IV SCH (13:47)
[2024-12-08 14:14] LABS: Chlamydia pneumoniae PCR Not Detected (NotDetected); Coronavirus 229E PCR Not Detected (NotDetected); Coronavirus CoV-2 (COVID19)PCR Not Detected (NotDetected); Coronavirus HKU1 PCR Not Detected (NotDetected); Coronavirus NL63 PCR Not Detected (NotDetected); Coronavirus OC43PCR Not Detected (NotDetected); Human Metapneumovirus PCR Not Detected (NotDetected); Parainfluenza Virus 1 PCR Not Detected (NotDetected); Parainfluenza Virus 2 PCR Not Detected (NotDetected); Parainfluenza Virus 3 PCR Not Detected (NotDetected); Parainfluenza Virus 4 PCR Not Detected (NotDetected); Respiratory Syncytial VirusPCR Not Detected (NotDetected); Rhinovirus/Enterovirus PCR Not Detected (NotDetected)
--- NOTE | 2024-12-08 14:19 | Pharmacy Report ---
Pharmacy Glycemic Short Note 2 - Date of Service December 08, 2024 - Glycemic Short BSG Results (Last 24 hours): 12/08/24 12/08/24 09:13 09:21 Glucose 135 H POC Glucose (other) 139 H OUTPATIENT ANTIDIABETIC REGIMEN: * Metformin 500mg PO daily * Pioglitazone 30mg PO daily * HbA1c: pending w/ AM labs ASSESSMENT: * Mr Garcia is a 64yo diabetic M admitted with cellulitis/abscess of mouth. * Pt is currently NPO for possible OR tomorrow. * Will plan to hold oral antidiabetic meds and use SQ insulin while admitted. * For now, Novolog added for correction. Conservative scale used. * Pharmacy will continue to follow and adjust regimen as indicated. PLAN FOR INPATIENT GLYCEMIC CONTROL: * Hold outpatient oral diabetes medications * Basal insulin * none at this time; will re-evaluate if BSGs become elevated * Bolus insulin * NovoLog per scale ACHS or Q6hrs while NPO * Goal Range: Low 110 mg/dL - High 140 mg/dL * Correction Factor: 30 mg/dL/unit * Nutritional / Prandial insulin per carb ratio of 1 unit per 10 grams CHO consumed
[2024-12-08] MEDS: CLINDAMYCIN/D5W 600 MG/50 ML BAG IV SCH (17:09)
[2024-12-08] MEDS: INSULIN ASPART PER UNIT CHARGE SC SCH (17:51)
[2024-12-09 11:25] LABS: Hematocrit (blood only) 40.6 % (42.0-52.0); Hemoglobin 13.0 g/dl (14.0-18.0); Mean Corpuscular Hemoglobin 28.2 pg (25.0-34.0); Mean Corpuscular Volume 88.1 fL (80.0-100.0); Platelet Count 295 K/uL (130-400); RDW Standard Deviation 43.1 fL (36.4-46.3); Red Blood Count 4.61 M/uL (4.70-6.10); White Blood Count 11.23 K/ul (4.8-10.8)
[2024-12-09 11:37] LABS: Anion Gap 8.0 (3-11); Blood Urea Nitrogen 21.0 mg/dl (6-23); Calcium 9.7 mg/dl (8.6-10.3); Carbon Dioxide 29.0 mmol/L (21-32); Chloride 101.0 mmol/L (98-107); Creatinine Clr Calc Pharmacy 97.3 ml/min; Glucose 118.0 mg/dl (70-99(Fasting)); Magnesium 2.0 mg/dl (1.7-2.4); Potassium 3.7 mmol/L (3.5-5.1); Sodium 138.0 mmol/L (136-145)
[2024-12-09 11:42] LABS: Hemoglobin A1C 6.2 % (4.5-5.6)
--- NOTE | 2024-12-09 11:48 | Hospitalist Progress Note ---
Date of Service December 09, 2024 Assessment & Plan (1) Beni angina: Plan 64M with PMH HTN HLD NIDDM, CKD3, Raynaud's who presents with neck swelling. CT showed Findings consistent with an extensive infectious process centered on the floor of the mouth with involvement of the submandibular, sublingual and submental spaces. Two associated small intramuscular fluid collections within the anterior floor of the mouth suggest developing abscesses. OMFS was consulted and recommended clindamycin and urgent surgery #Beni angina -With developing abscesses -CT: Findings consistent with an extensive infectious process centered on the floor of the mouth with involvement of the submandibular, sublingual and submental spaces. Two associated small intramuscular fluid collections within the anterior floor of the mouth suggest developing abscesses. -WBC 12 on admission -No s/s sepsis Plan -For OR today by OMFS -Continue clindamycin, monitor for C. diff -Follow labs, temp -F/u on blood cultures, NGTD #HTN -BP stable -Resume chlorthalidone, lisinopril and verapmil tomorrow if BP allows #CKD3 -Renal function at baseline -Avoid nephrotoxic agents if possible #NIDDM -SSI -Home metformin held #HLD -Statin therapy I spent a total of 36 minutes coordinating, documenting, and providing care for this patient excluding time spent in the performance of separately billed servi jesus. This included personally reviewing all current laboratories and imaging studies, medical reconciliation, outpatient chart review and discussion with specialists Admission and Anticipated Discharge Date Admission Date: December 08, 2024 Subjective Feeling well this AM. seen before surgery. Patient denies F/C, CP, palpitations, SOB, dyspnea, abd pain, N/V/D Physical Exam Physical Exam: Vitals and labs reviewed General: Well appearing, NAD HEENT: EOMI, PERRLA Submandibular swelling, erythema, warmth and TTP Neck: Supple Cardiac: RRR no rubs gallops or murmurs Lungs: CTA no rhonchi wheezing or rales Abd: S NT ND BS positive MSK: Full ROM. No obvious deformities Ext: No Edema cyanosis Skin: Warm, Dry Neuro: AOx3 No focal deficits. Psych: Normal Mood Results & Data Results & Data Vital Signs (Past 12 Hours) Vital Signs Temp Pulse Pulse Resp BP Pulse Ox O2 Del Method 12/09/24 09:00 87 12/09/24 08:25 37.2 C 80 16 129/75 95 Room Air 12/09/24 04:04 37.2 C 86 18 149/85 H 96 Room Air Laboratory Results Abnormal lab results 12/08/24 12/09/24 12/09/24 Range/Units 17:16 00:18 06:16 WBC (4.8-10.8) K/ul RBC (4.70-6.10) M/uL Hgb (14.0-18.0) g/dl Hct (42.0-52.0) % Glucose (70-99(Fasting)) mg/dl POC Glucose 117 H 128 H 124 H (70-99) mg/dl Phosphorus (2.5-4.9) mg/dl 12/09/24 Range/Units 10:50 WBC 11.23 H (4.8-10.8) K/ul RBC 4.61 L (4.70-6.10) M/uL Hgb 13.0 L (14.0-18.0) g/dl Hct 40.6 L (42.0-52.0) % Glucose 118 H (70-99(Fasting)) mg/dl POC Glucose (70-99) mg/dl Phosphorus 1.9 L (2.5-4.9) mg/dl
--- NOTE | 2024-12-09 12:54 | Progress Note ---
Date of Service December 09, 2024 Assessment & Plan Admission and Anticipated Discharge Date Admission Date: December 08, 2024 Subjective The swelling has localized to the submental, submandibular and left floor of the mouth. Tooth # 20 is the abscessed tooth which will also be removed. I reviewed the surgery with Charles and his . Treatment Plan: Set up with general anesthesia in hospital due to complexity of the procedure He is NPO I reviewed the treatment plan and consent with the patient and Understanding was expressed. Time was given for questions regarding the surgery, risks and post op care. Discussed alternative to treatment--procedure as planned, Do not do surgery extraoral I&D with extraction of # 20 Risks discussed: Bleeding,Pain,swelling,infection, dry socket, delayed healing, nerve injury to face,lips,tongue,chin area which could be permanent (rare). TMJ, jaw stiffness, change in bite (rare), ear pain (referred). Sinus problems like fistula or infection. Need to leave a small root fragment in place to avoid injury to nerve or sinus. Relationship of teeth to nerve/sinus and risk of jaw fracture. Home care reviewed: tooth brushing, rinsing, follow up care with Dr Lipscomb. diet=[id number] dental. Discussed activity level, driving/work while on Rx pain Meds. Surgery to be set up today December 09 in the afternoon Consent signed NPO Results & Data Vital Signs (Past 12 Hours) Vital Signs Temp Pulse Pulse Resp BP Pulse Ox O2 Del Method 12/09/24 11:02 37.5 C 55 L 16 134/85 96 Room Air 12/09/24 09:00 87 12/09/24 08:25 37.2 C 80 16 129/75 95 Room Air 12/09/24 04:04 37.2 C 86 18 149/85 H 96 Room Air PG Care Time/CCT Total # of Minutes Spent Total Time Spent with Patient: Total time spent is greater than 50% in coordination of care (as documented) at patient's floor/unit and/or counseling patient: Coding Level of Care Code None
[2024-12-09] MEDS ORDERED: ONDANSETRON INJ 2 MG/ML 2 ML VIAL IV PRN (14:39)
[2024-12-09] MEDS ORDERED: HYDROmorphone INJ 1 MG/ML SYRINGE IV PRN (14:39)
[2024-12-09] MEDS ORDERED: ATROPINE SULFATE 0.1 MG/ML 10ML SYR IV PRN (14:39)
--- NOTE | 2024-12-09 14:39 | Anesthesiology Consultation ---
Date of Service December 09, 2024 Assessment & Plan ASA ASA2 Proposed Anesthesia Anesthesia Type: General Risk / Benefits Reviewed With: PT / POA / Parent / Guardian, Accepts Plan and Informed Consent Obtained History Surgery Operation Date: 12/09/24 12:15 Proposed Procedures p Left Side Drainage - Ollie R Lipscomb, DMD s Extraction #20 - Ollie Lipscomb DMD Height/Weight Height: 6 ft Weight: 130.5 kg Allergies Allergy/AdvReac Type Severity Reaction Status Date / Time Penicillins Allergy Unknown Unknown - Unverified 12/08/24 11:29 On file w/ [facility] Medications Home Medications Medication Instructions Recorded Confirmed Last Taken atorvastatin 40 mg tablet 40 mg PO DAILY 12/08/24 12/08/24 Unknown chlorthalidone 25 mg tablet 25 mg PO DAILY 12/08/24 12/08/24 Unknown fenofibrate micronized 200 mg 200 mg PO DAILY 12/08/24 12/08/24 Unknown capsule gabapentin 300 mg capsule 300 mg PO TID 12/08/24 12/08/24 Unknown lisinopril 40 mg tablet 40 mg PO DAILY 12/08/24 12/08/24 Unknown metformin 500 mg tablet,extended 500 mg PO DAILY 12/08/24 12/08/24 Unknown release 24 hr pioglitazone 30 mg tablet 30 mg PO DAILY 12/08/24 12/08/24 Unknown verapamil 240 mg tablet,extended 240 mg PO DAILY 12/08/24 12/08/24 Unknown release Active Medications Generic Name Dose Route Start Last Admin Trade Name Freq PRN Reason Stop Dose Admin Lactated Ringer's 1,000 mls @ 70 mls/hr 12/08/24 13:00 12/09/24 04:47 Lr IV 12/09/24 17:34 70 mls/hr .[id number] LIZZY Administration Clindamycin Phosphate 600 mg in 50 mls @ 100 mls/hr 12/08/24 18:00 12/09/24 09:36 Cleocin/D5w IV 12/18/24 17:59 Infused Q8H LIZZY Infusion Insulin Aspart 0 units 12/08/24 18:00 12/09/24 12:25 Insulin Aspart Per Unit Charge SC 01/07/25 17:59 Not Given Q6 LIZZY NPO Date Last Intake of Fluids: 12/07/24 Time Last Intake of Fluids: 17:00 Date Last Intake of Solids: 12/07/24 Time Last Intake of Solids: 17:00 Past Medical History Medical History H/O non-insulin dependent diabetes mellitus Hypertension Exercise / Class Metabolic Activity II 4-5 Yardwork/Stairs/Walk up hill Past Family History Family History Other No pertinent family history Past Anesthesia History No Hx of Anesthesia Complications and No Family Hx of Anesthesia Complications History of PONV No Hx of PONV and No Hx of Motion Sickness Social History Smoking Status: Never smoker Hx Alcohol Use: Yes Alcohol type: beer alcohol intake frequency: other Alcohol Intake Frequency Comment: Weekends 12 pack beer Hx Substance Use: No Review of Systems denies fever/cough/ colds/ chest pain/ SOB/ TIM denies TIM Physical Exam Vital Signs Last Vital Signs Temp 37.1 C 12/09/24 13:45 Pulse 90 12/09/24 13:45 Resp 20 12/09/24 13:45 BP 138/80 12/09/24 13:45 Pulse Ox 97 12/09/24 13:45 O2 Del Method Room Air 12/09/24 13:45 ENMT Mouth: + chipped teeth; no TMJ abnormality and no dentition abnormality Thyromental Distance: < 3.5 Finger Breadths Mallampati Class: IV (pt reports pain on opening) Neck neck extension not limited pt neck is visibily swollen. no turbulent flow through neck by auscultation Respiratory normal respiratory effort; no respiratory distress Auscultation: lungs clear to auscultation bilaterally Cardiovascular Rate/Rhythm: regular rate and regular rhythm Neurologic moves all extremities Psychiatric Orientation: alert and oriented x 3 Testing Laboratory Results 12/09/24 10:50 12/09/24 10:50 PT 10.6 Seconds (9.0-12.0) 12/08/24 09:13 INR 1.0 (0.9-1.1) 12/08/24 09:13 APTT 29 Seconds (21-31) 12/08/24 09:13 Hemoglobin A1c 6.2 % (4.5-5.6) H 12/09/24 10:50 Urine Color Yellow 12/08/24 10:13 Urine Appearance Clear (Clear) 12/08/24 10:13 Urine pH 7.5 (4.5-7.5) 12/08/24 10:13 Ur Specific [place] 1.039 (1.000-1.030) H 12/08/24 10:13 Urine Protein Negative (Negative) 12/08/24 10:13 Urine Glucose (UA) Trace (Negative) H 12/08/24 10:13 Urine Ketones Negative (Negative) 12/08/24 10:13 Urine Nitrite Negative (Negative) 12/08/24 10:13 Ur Leukocyte Esterase Negative (Negative) 12/08/24 10:13 12/08/24 09:55 Aerobic Blood Culture - Preliminary Blood No growth in Aerobic bottle after 24 hours. Anaerobic Blood Culture - Preliminary No growth in Anaerobic bottle after 24 hours. 12/08/24 09:13 Aerobic Blood Culture - Preliminary Blood No growth in Aerobic bottle after 24 hours. Anaerobic Blood Culture - Preliminary No growth in Anaerobic bottle after 24 hours. 12/09/24 12/09/24 12/09/24 13:49 12:19 06:16 POC Glucose 111 H 115 H 124 H
--- NOTE | 2024-12-09 14:48 | History & Physical Bridge Note ---
Date of Service December 09, 2024 History & Physical Bridge Note I have examined the patient, reviewed the History & Physical and in the interval since the performance of the History & Physical I have noted the following changes of clinical significance: no changes noted
[2024-12-09] MEDS ORDERED: PROPOFOL IV EMULSION 10 MG/ML 20 ML VIAL IV ONE (15:07)
[2024-12-09] MEDS ORDERED: ONDANSETRON INJ 2 MG/ML 2 ML VIAL ONE (15:07)
[2024-12-09] MEDS ORDERED: SUCCINYLCHOLINE CHLORIDE 20 MG/ML 10 ML VIAL IV ONE (15:07)
[2024-12-09] MEDS ORDERED: LIDOCAINE 2% 2 ML VIAL/AMP(20MG/ML) INFIL ONE (15:07)
[2024-12-09] MEDS ORDERED: ROCURONIUM BROMIDE 10 MG/ML 5 ML VIAL IV ONE (15:07)
[2024-12-09] MEDS ORDERED: MIDAZOLAM HCL 1 MG/ML 2ML VIAL ONE (15:10)
[2024-12-09] MEDS ORDERED: GLYCOPYRROLATE 0.2 MG/ML VIAL ONE (15:58)
[2024-12-09] MEDS ORDERED: SUGAMMADEX SODIUM 200 MG/2 ML VIAL IV ONE (16:02)
[2024-12-09] MEDS: BUPIVACAINE/EPINEPHRINE 0.5% 1:200,000 1.8 ML CARP ONE (16:04)
[2024-12-09] MEDS: CHLORHEXIDINE GLUCONATE 0.12% 480 ML MT PRN (16:05)
[2024-12-09] MEDS ORDERED: LABETALOL HCL IV 5 MG/ML 20ML IV ONE (16:11)
[2024-12-09] MEDS ORDERED: DexMEDEtomidine HCL IV 100 MCG/ML VIAL IV ONE (16:23)
[2024-12-09] MEDS ORDERED: MoRPHine SULFATE 2 MG/ML CARP IV PRN (16:26)
--- NOTE | 2024-12-09 17:25 | Anesthesiology Progress Note ---
Date of Service December 09, 2024 Anesthesia Post Procedure Vital Signs Vital Signs: Temp Pulse Pulse Resp BP Pulse Ox O2 Del Method 12/09/24 17:11 37.3 C 99 H 20 145/88 H 95 Room Air 12/09/24 16:59 36.2 C L 12/09/24 16:45 101 H 19 158/91 H 94 Room Air 12/09/24 16:35 100 H 19 153/91 H 94 Room Air 12/09/24 16:27 36.1 C L 90 19 151/106 H 98 Room Air 12/09/24 13:45 37.1 C 90 20 138/80 97 Room Air 12/09/24 13:01 90 12/09/24 11:02 37.5 C 55 L 16 134/85 96 Room Air 12/09/24 09:00 87 12/09/24 08:25 37.2 C 80 16 129/75 95 Room Air 12/09/24 04:04 37.2 C 86 18 149/85 H 96 Room Air 12/08/24 22:56 95 H 12/08/24 22:26 37.3 C 90 16 130/85 97 Room Air 12/08/24 19:17 37.5 C 95 H 18 142/87 H 96 Room Air 12/08/24 18:19 107 H Pain Intensity Throat: Pain Intensity: 2 Transfer of Care Handoff Completed per policy Notes Mental Status: alert / awake / arousable and participated in evaluation Patient Amnestic to Procedure: Yes Nausea / Vomiting: adequately controlled Pain: adequately controlled Airway Patency, RR, SpO2: stable & adequate BP & HR: stable & adequate Hydration State: stable & adequate Anesthetic Complications: no major complications apparent
[2024-12-09] MEDS: TRIAMCINOLONE ACET 0.1% OINT 15 GM TUBE ONE (17:33)
[2024-12-09] MEDS: CLINDAMYCIN/D5W 900 MG/50 ML BAG IV SCH (17:34)
[2024-12-09] MEDS: INSULIN ASPART PER UNIT CHARGE SC SCH (20:46)
[2024-12-10] MEDS: KETOROLAC 30 MG/ML VIAL IV PRN (02:13)
[2024-12-10 06:29] LABS: Hematocrit (blood only) 37.8 % (42.0-52.0); Hemoglobin 12.7 g/dl (14.0-18.0); Mean Corpuscular Hemoglobin 29.1 pg (25.0-34.0); Mean Corpuscular Volume 86.5 fL (80.0-100.0); Platelet Count 318 K/uL (130-400); RDW Standard Deviation 41.3 fL (36.4-46.3); Red Blood Count 4.37 M/uL (4.70-6.10); White Blood Count 14.79 K/ul (4.8-10.8)
[2024-12-10 06:49] LABS: Anion Gap 10.0 (3-11); Blood Urea Nitrogen 25.0 mg/dl (6-23); Calcium 9.7 mg/dl (8.6-10.3); Carbon Dioxide 27.0 mmol/L (21-32); Chloride 100.0 mmol/L (98-107); Creatinine Clr Calc Pharmacy 87.4 ml/min; Glucose 138.0 mg/dl (70-99(Fasting)); Potassium 3.9 mmol/L (3.5-5.1); Sodium 137.0 mmol/L (136-145)
[2024-12-10 07:19] VITALS: TEMP 97.9
--- NOTE | 2024-12-10 09:40 | Progress Note ---
Date of Service December 10, 2024 Assessment & Plan Admission and Anticipated Discharge Date Admission Date: December 08, 2024 Subjective Post Op infection evaluation 18 hours The infected area is responding well Swelling is starting to go gone and the tissue is getting back to normal in size and texture. Minimal drainage is noted. Drain will be remove my office Cultures pending Infection has responded very well to the antibiotics, extractions and the I and D. I requested that the patient continue with massage, heat and wound care. At this time the area is well healed and responded well to treatment OK for D/C on oral antibiotics, pain meds as needed and Peridex RTC at 4:30 pm Results & Data Vital Signs (Past 12 Hours) Vital Signs Temp Pulse Pulse Resp BP Pulse Ox O2 Del Method 12/10/24 08:00 74 12/10/24 07:18 36.6 C 70 19 132/80 97 Room Air 12/10/24 04:52 36.8 C 74 18 115/70 96 Room Air 12/09/24 23:11 92 H 12/09/24 22:56 37.6 C H 95 H 18 126/77 95 Room Air PG Care Time/CCT Total # of Minutes Spent Total Time Spent with Patient: Total time spent is greater than 50% in coordination of care (as documented) at patient's floor/unit and/or counseling patient: Coding Level of Care Code None
--- NOTE | 2024-12-10 11:10 | Discharge Summary ---
Discharge Summary Date of Service December 10, 2024 Principal Dx & Hospital Course #1 = Principal Diagnosis (1) Beni angina: Plan 64M with PMH HTN HLD NIDDM, CKD3, Raynaud's who presents with neck swelling. CT showed Findings consistent with an extensive infectious process centered on the floor of the mouth with involvement of the submandibular, sublingual and submental spaces. Two associated small intramuscular fluid collections within the anterior floor of the mouth suggest developing abscesses. OMFS was consulted and recommended clindamycin and urgent surgery. S/p I&D yesterday. Doing well today. he has drains in place. surgery cleared for discharge. he is to f/u with surgery on as OP. he will continue on clindamycin per surgery. vitals stable on day of discharge. he has no complaints. labs acceptable, leukocytosis slightly worse today but likely reactive from surgery. #Beni angina -With developing abscesses -CT: Findings consistent with an extensive infectious process centered on the floor of the mouth with involvement of the submandibular, sublingual and submental spaces. Two associated small intramuscular fluid collections within the anterior floor of the mouth suggest developing abscesses. -WBC 12 on admission -No s/s sepsis #HTN -BP stable -Resume chlorthalidone, lisinopril and verapmil today #CKD3 -Renal function at baseline -Avoid nephrotoxic agents if possible #NIDDM -SSI -Home metformin held #HLD -Statin therapy I spent a total of 39 minutes coordinating, documenting, and providing care for this patient excluding time spent in the performance of separately billed services. This included personally reviewing all current laboratories and imaging studies, medical reconciliation, outpatient chart review and discussion with specialists Notes For Next Care Provider Medication Changes From Visit med changes: clindamycin and norco Admission HPI Per Admitting Provider 64-year-old male with PMH of T2DM, HLD, Raynaud's syndrome, HTN, obese class III, CKD stage III A, chronic bilateral low back pain with bilateral sciatica presents to the ED with acute swelling of neck soft tissues below jaw since yesterday. Patient reports intermittent left lower teeth pain for several weeks now, he noted acute swelling of his upper neck tissue below jaw yesterday which continued to worsen today and has difficulty swallowing. Patient reports some sore throat and cough since 2 days. Patient denies fever/chest pain/palpitation/nausea/vomiting/diarrhea/pain or burning with passing urine. patient reports breathing okay and no difficulty. Patient denies smoking/drinks maybe 6 beers a week/denies recreational drug use. Medications reviewed with the patient at bedside. Plan of care discussed with the patient at bedside, he voiced understanding. Full Code. Discharge Exam Vitals and labs reviewed General: Well appearing, NAD HEENT: EOMI, PERRLA. submandibular drain in place. swelling. Neck: Supple Cardiac: RRR no rubs gallops or murmurs Lungs: CTA no rhonchi wheezing or rales Abd: S NT ND BS positive MSK: Full ROM. No obvious deformities Ext: No Edema cyanosis Skin: Warm, Dry Neuro: AOx3 No focal deficits. Psych: Normal Mood Updated Medication List Medication Instructions Recorded Confirmed Type atorvastatin 40 mg tablet 40 mg PO DAILY 12/08/24 12/08/24 History chlorthalidone 25 mg tablet 25 mg PO DAILY 12/08/24 12/08/24 History fenofibrate micronized 200 mg 200 mg PO DAILY 12/08/24 12/08/24 History capsule gabapentin 300 mg capsule 300 mg PO TID 12/08/24 12/08/24 History lisinopril 40 mg tablet 40 mg PO DAILY 12/08/24 12/08/24 History metformin 500 mg tablet,extended 500 mg PO DAILY 12/08/24 12/08/24 History release 24 hr pioglitazone 30 mg tablet 30 mg PO DAILY 12/08/24 12/08/24 History verapamil 240 mg tablet,extended 240 mg PO DAILY 12/08/24 12/08/24 History release clindamycin HCl 300 mg capsule 300 mg PO TID 7 days #21 caps 12/10/24 Rx hydrocodone 5 mg-acetaminophen 325 1 tab PO Q4H PRN pain #14 tabs 12/10/24 Rx mg tablet Hospital Stay Data Consultations 12/08/24 11:13 Consult Oromaxillofacial Surgery Stat 12/08/24 11:15 ED Decision to Admit Stat 12/08/24 12:51 ED Decision to Admit Stat Procedures Performed Operation Date: 12/09/24 12:15 Actual Procedures p External/Internal Incision and Drainage of Submandibular, Beni's Angina Infection(Left) - Ollie Lipscomb DMD s Extraction Tooth #20 - Ollie Lipscomb DMD Diagnostic Imagining Performed 12/08/24 08:59 CT soft tissue neck w con Stat 12/08/24 10:30 CT head/brain wo con Stat Pending Results Patient Have Any Pending Studies at Discharge: No Discharge Instructions Given to Patient (Per Discharging Provider) ADDITIONAL ACTIVITY RECOMMENDATIONS: * [place] teeth after every meal. It is very important to keep your mouth clean to prevent infection. * Starting tonight rinse with the Peridex as directed then 2 x a day * it is very important to keep well hydrated, this prevents fever and possible dry socket pain SPECIAL CARE INSTRUCTIONS: *It is not uncommon that between day 2-4 that your swelling will be at its worst this is very normal, do not be alarmed. * Keep ice on the side of your face for the next 24 to 36 hours. This will help keep the swelling down. * After 36 hours, apply heat (hot water bottle or heating pad) for the next two days, as often as possible. * Tomorrow start rinsing your mouth with 1/2 teaspoon salt in 8 ounces warm water. This rinse should be used every 4-6 hours. * You may experience slight nausea. To prevent this, never take your medication on an empty stomach. If nauseated, take small sips of herminia sadie until you feel better; then you may start on applesauce and toast. * A certain amount of bleeding is to be expected. It is often possible to control mild oozing by placing folded gauze over the area and biting down for 30 minutes. If you are unable to control excessive bleeding, call Dr Lipscomb at [phone] * You may experience some discomfort for a few days. If pain or swelling increases, Call Dr Lipscomb * Return to the office for a follow up check up on: Dec 12 at 4:430 drain removal * office address--[address] phone # [phone] Total Time Total Time Spent Total Time Spent (In Minutes): 39
[2024-12-10 11:22] VITALS: BP 131/78; PULSE 65; RESP 20; O2SAT 98
--- NOTE | 2024-12-11 20:09 | Operative Report ---
[facility] Post Operative Report Pre & Post Diagnosis Operation Date: 12/09/24 12:15 Pre-Op Diagnosis: Dental Infection, Submandibular Swelling Post-Op Diagnosis: Dental Infection, Submandibular Swelling I identified the patient and participated in the time-out.: Yes Procedure Operation Date: 12/09/24 12:15 Actual Procedures p External/Internal Incision and Drainage of Submandibular, Beni's Angina Infection(Left) - Ollie Lipscomb DMD s Extraction Tooth #20 - Ollie Lipscomb DMD Surgeon Ollie Lipscomb, [employer] none Estimated Blood Loss 5 Findings Consistent with Post-Op Diagnosis Beni angina Specimens I&D submental area Drains yes--[place] neck Anesthesia Type General Complications none Disposition Accompanied Patient To Recovery: Yes Indications significant facial swelling Description of Procedure Actual Procedures p Incision and Drainage Submandibular, submental and floor of the mouth (Beni angina) Abscess; Removal of Tooth #20(Not Applicable) - Ollie Lipscomb DMD CPT 46086 D7210 # 20 K12.2 K13.79 L02.01 Once cleared for surgery general anesthesia was achieved, the eyes were protected by the anesthesia dept criteria. A time out was take for patient ID, antibiotics, equipment and position verification once all agreed the procedure began. There was massive neck swelling without airway issues. GlideScope oral intubation was used. Local anesthesia using Marcaine with a vasoconstrictor ( 1.8 ml per site) given into left inferior alveolar nerve A throat pack was placed after the oral cavity was irrigated with saline. Once a surgical level of anesthesia was obtained and the local anesthesia was given time for the blocks the surgery was started. I turned my attention to the infection which was located in the floor of the mouth and submental area. The tongue was elevated and there was also swelling associated with tooth # 20 ( see CT scan report) Incision and Drainage Beni`s angina CPT 27412 K12.2, K13.79 L02.01 Using a 15 blade an incision was made medial to the alveolar ridge and lateral to the duct of the submandibular gland. Once the incision was made a lot of pus extruded from the site. This drainage was cultured for anaerobic and aerobic bacteria. Now an extra oral incision in the submental tissues was make with a 15 blade. A curved hemostat was carefully placed into the infected space along the medial side of the lower jaw and from the submental space in the lateral floor of the mouth. Much more drainage was now allowed to escape from the submental, floor of the mouth and submandibular spaces. The hemostat was passed laterally in the adjacent spaces of the anterior neck to drain all of the infection in the typical Beni spaces. I palpated the chin and submental area and no further drainage was expressed. The area was irrigated with at least 100 ml of NS solution. I now passed a 1/4 Priyanka drain from extraoral to intraoral to allow for through and thought drainage.The drain was secured with a few 4-0 silk sutures. I now turned my attention to remove the # 20 tooth. Lower # 20 D7210 The full thick Muco-periosteal flap was made on the facial aspect from # 18-22. The flap was reflected to expose the the subperiosteal space the bone adjacent to # 20. The rongeur was used to remove bone, the tooth was removed with a 301 elevator, the mental nerve was intact, there was a large amount of granulation tissue on the apex and some more pus that was expressed. I inspected the sites to insure all bleeding was controlled. I removed the throat pack and suctioned the throat. A gauze pressure dressings was placed. All instrument and sponge count was correct. The patient was allowed to awake from the anesthesia. Once full awake the anesthesia tube was removed and the patient was taken to the recovery room with all vital sign stable. The patient tolerated the surgery very well. I will follow the patient in my office, Rx and instructions will be given upon discharge I will plan drain removal in my office on December 12 in the afternoon. I attest to the content of the Intraoperative Record and any orders documented therein. Any exceptions are noted below.
== END 2024-12-10 13:01 | disposition home or self-care (01) | DRG 857 ==
LOC: ED 08:33 → SUATTDRO 13:05 → 2S 13:05